=== PATIENT | male | born 1985 | race Caucasian/White ===

== ENCOUNTER 2016-08-05 22:09 | Emergency (ER) | payer MEDICAID ==
[~2016-08-05] VITALS: Ht 172.7 cm; Wt 83.9 kg
--- NOTE | 2016-08-05 22:14 | NUR ---
PT [facility] FOR MULTIPLE LACERATIONS TO BFA S/P SI ATTEMPT, AOX4 W/ RESP EVEN & UNLABORED, IRRITABLE, COOPERATIVE AT THIS TIME. PT REPORT ATTEMPTING SI, STATING "OBVIOUSLY I DIDN'T CUT DEEP ENOUGH." PT PLACED ON SI PRECAUTIONS, NEAR NURSE'S STATION ON CONTINUOUS MONITORING. PENDING FURTHER MAXX BROUSSARD MD.
--- NOTE | 2016-08-05 22:27 | NUR ---
EMT at bedside for wound cleaning BFA multiple lacerations w/ NS.
--- NOTE | 2016-08-05 22:36 | NUR ---
entry tech at bedside for blood draw.
[2016-08-05 22:45] LABS: BASOPHILS # (AUTO) 0.1 /CMM (0.0-0.2); BASOPHILS % (AUTO) 0.9 % (0.0-2.0); EOSINOPHILS # (AUTO) 0.1 /CMM (0.0-0.7); EOSINOPHILS % (AUTO) 0.8 % (0.0-6.0); HEMATOCRIT 48 % (39-51); HEMOGLOBIN 16.5 g/dL (13.5-17.5); LYMPHOCYTES # (AUTO) 2.5 /CMM (0.8-4.8); LYMPHOCYTES % (AUTO) 24.7 % (20.0-44.0); MEAN CORPUSCULAR HEMOGLOBIN 30 PG (26.0-33.0); MEAN CORPUSCULAR HGB CONC 34 g/dl (31.0-36.0); MEAN CORPUSCULAR VOLUME 86 fL (80-96); MONOCYTES # (AUTO) 0.3 /CMM (0.1-1.30); NEUTROPHILS # (AUTO) 7.2 /CMM (1.8-8.9); NEUTROPHILS % (AUTO) 70.6 % (43.0-81.0); PLATELET COUNT (AUTO) 214 /CMM (150-450); RDW COEFFICIENT OF VARIATION 15.2 (11.5-15.0); RED BLOOD CELL COUNT(AUTO) 5.59 MIL/uL (4.5-6.0); WHITE BLOOD COUNT (AUTO) 10.2 K/uL (4.3-11.0)
--- NOTE | 2016-08-05 22:46 | NUR ---
Urinal provided. pt instructed to give urine as soon as able.
[2016-08-05 22:56] LABS: CALCIUM, SERUM 9.7 mg/dL (8.5-10.1); CARBON DIOXIDE 26 mmol/L (21-32); CHLORIDE 104 mmol/L (98-107); CREATININE 1.1 mg/dL (0.6-1.3); GLUCOSE 94 mg/dL (74-106); SODIUM SERUM 140 mmol/L (136-145); UREA NITROGEN, BLOOD 21 mg/dL (7-18)
--- NOTE | 2016-08-05 22:59 | NUR ---
Incoming call fr pt father, Ciro Joyner [phone] or [phone] inquiring on pt status. Per pt request, advised pt father pt states hes doing fine.
[2016-08-05 23:02] LABS: ACETAMINOPHEN 0 ug/ml (10-30); ALANINE AMINOTRANSFERASE 39 U/L (12-78); ALBUMIN 4.5 g/dL (3.4-5.0); ALCOHOL, BLOOD < 3 mg/dL (0-0); ALKALINE PHOSPHATASE 118 U/L (46-116); ASPARTATE AMINOTRANSFERASE 19 U/L (15-37); BILIRUBIN,TOTAL 0.2 mg/dL (0.2-1.0); SALICYLATE 4.1 mg/dL (2.8-20.0); TOTAL PROTEIN, SERUM 8.7 g/dL (6.4-8.2)
--- NOTE | 2016-08-05 23:15 | NUR ---
Urine obtained & sent.
[2016-08-05 23:32] LABS: APPEARANCE,URINE CLEAR (CLEAR); BILIRUBIN,URINE NEGATIVE (NEGATIVE); BLOOD, URINE NEGATIVE Ery/uL (NEGATIVE); COLOR,URINE YELLOW (YELLOW); KETONES,URINE NEGATIVE (NEGATIVE); LEUKOCYTE ESTERASE ,URINE NEGATIVE (NEGATIVE); NITRITE, URINE NEGATIVE (NEGATIVE); PROTEIN,URINE NEGATIVE (NEGATIVE); UGLUCOSE NEGATIVE (NEGATIVE); UROBILINOGEN,URINE 0.2 EU/dL (0.2)
--- NOTE | 2016-08-05 23:37 | NUR ---
CALLED LAB FOR ETA ON U/A RESULTS. CLS STATES "FIVE MINUTES."
--- NOTE | 2016-08-05 23:38 | NUR ---
RUSSELL Andrade at bedside for application sutures BFA lacerations.
--- NOTE | 2016-08-05 23:42 | NUR ---
PRABHAKAR CAREY LCSW CALLED; ENROUTE TO [facility] TO MAXX PT.
--- NOTE | 2016-08-06 00:08 | NUR ---
Sutures w/ steristrips to RFA lacerations, steristrips to LFA lacerations intact, wound edges well approximated w/ no active bleeding noted. Nonadherent dry gauze dressing applied to LFA. pt tolerated procedure well w/ no acute distress noted.
--- NOTE | 2016-08-06 00:36 | NUR ---
Art, STALLION MANAGER at bedside for psych eval.
--- NOTE | 2016-08-06 01:40 | NUR ---
pt sitting up in bed w/ resp even & unlabored, calm, cooperative w/ nad noted. Awaiting ride from [facility].
--- NOTE | 2016-08-06 01:56 | NUR ---
pt medically cleared to go back to [facility] facility, resp even & unlabored, ambulatory w/ steady gait w/ nad noted. Patient discharged to home in stable condition. Written and verbal after care instructions given. Patient verbalizes understanding of instruction.
[2016-08-06 01:57] VITALS: BP 128/78
== END 2016-08-06 01:56 | disposition home or self-care (01) ==
LOC: ER 22:14
DX: S51.811A Laceration without foreign body of right forearm, initial encounter (principal); S51.812A Laceration without foreign body of left forearm, initial encounter; R45.851 Suicidal ideations; X78.1XXA Intentional self-harm by knife, initial encounter; Y93.89 Activity, other specified; Y92.89 Other specified places as the place of occurrence of the external cause; Y99.9 Unspecified external cause status
CPT/HCPCS: 12002; 36415; 80048; 80076; 80305; 80329; 81001; 85025; 99285; A4606; A6402; G0480 ×2; Z7610; 81000-TC